=== PATIENT | female | born 1990 | race Caucasian/White ===

== ENCOUNTER 2017-02-02 16:50 | Inpatient (IN) | payer OTHER ==
[2017-02-02] VITALS (7 sets, daily range): BP systolic 90–122; BP diastolic 46–69
[~2017-02-02] VITALS: Ht 154.9 cm; Wt 52.0 kg
[~2017-02-02 16:50] MED LIST: DESYREL100 MG PO; REMERON15 M2 PO; TRAZODONE HCL100 MG PO
[2017-02-02] MEDS ORDERED: GEODON20 MG PO (18:02)
[2017-02-02 18:36] LABS: EOSINOPHIL (%) 0.4 % (0-5); EOSINOPHIL COUNT 0.1 K/uL (0-0.3); IMMATURE GRANULOCYTE (%) 0.4 % (0.0-0.7); IMMATURE GRANULOCYTE COUNT 0.1 K/uL; INSTRUMENT ABS NEUTROPHIL CT 9.7 K/uL; LYMPHOCYTE COUNT 2.5 K/uL (1.0-2.8); MCH 31.5 PG (29.0-34.0); MCV 89.9 FL (83-99); MEAN PLAT.VOLUME 11.8 uM^3 (9.5-12.4); MONOCYTE (%) 4.3 % (3-12); MONOCYTE COUNT 0.6 K/uL (0-0.8); NEUTROPHIL (%) 75.2 % (45-76); NEUTROPHIL COUNT 9.7 K/uL (1.8-6.4); PLATELET COUNT 148 K/uL (156-360); RBC DIS.WIDTH-CV 12.9 % (11.8-14.6); RBC DIS.WIDTH-SD 42.5 % (39-53); RED BLOOD COUNT 3.56 M/uL (3.80-5.20); WHITE BLOOD COUNT 12.9 K/uL (4.1-10.2)
[2017-02-02 22:51] LABS: AMPHETAMINE NEGATIVE (500 ng/mL); BARBITURATES NEGATIVE (200 ng/mL); BENZODIAZEPINES NEGATIVE (150 ng/mL); COCAINE NEGATIVE (150 ng/mL); INTERNAL CONTROLS VALID? YES; METHADONE NEGATIVE (200 ng/mL); METHAMPHETAMINE NEGATIVE (500 ng/mL); OPIATES (MORPHINE) NEGATIVE (100 ng/mL); OXYCODONE NEGATIVE (100 ng/mL); PHENCYCLIDINE NEGATIVE (25 ng/mL); PROPOXYPHENE NEGATIVE (300 ng/mL); THC CANNABINOIDS NEGATIVE (50 ng/mL); TRICYCLIC ANTIDEPRESSANTS NEGATIVE (300 ng/mL)
[2017-02-03] VITALS (22 sets, daily range): BP systolic 79–124; BP diastolic 42–76
[2017-02-03 10:46] LABS: ANION GAP 8 MEQ/L (2-14); CHLORIDE 106 MEQ/L (99-109); POTASSIUM 3.7 MEQ/L (3.7-5.4); SAMPLE HEMOLYSIS CHECK 0; SAMPLE ICTERIC CHECK 0; SAMPLE LIPEMIA CHECK 0; SODIUM 136 MEQ/L (136-147); TOTAL BILIRUBIN 0.3 MG/DL (0.0-1.0)
[2017-02-03 10:52] LABS: ALKALINE PHOSPHATASE 141 IU/L (3-129); GFR ESTIMATE (CALCULATED) > 59 mL/min/; GLUCOSE 107 mg/dL (70-99); UREA NITROGEN (BUN) 7 mg/dL (9-23)
[2017-02-03] MEDS ORDERED: IBUPROFEN800 MG PO (13:33)
[2017-02-04 07:57] VITALS: BP 103/65
[2017-02-04 14:42] VITALS: BP 111/61
[2017-02-05 07:32] VITALS: BP 99/62
== END 2017-02-05 13:35 | disposition home or self-care (01) | DRG 774 ==
LOC: LDRP-OP 16:50 → 2WEST 16:52 → LDRP-OP 03-25 12:02
PROVIDERS: Midwife; Obstetrics & Gynecology
PROC: 3E033VJ Introduction of Other Hormone into Peripheral Vein, Percutaneous Approach (ICD-10-PCS; 2017-02-02)
PROC: 3E0P7GC Introduction of Other Therapeutic Substance into Female Reproductive, Via Natural or Artificial Opening (ICD-10-PCS; 2017-02-02)
PROC: 10E0XZZ Delivery of Products of Conception, External Approach (ICD-10-PCS; principal; 2017-02-03)
PROC: 3E0S3BZ Introduction of Anesthetic Agent into Epidural Space, Percutaneous Approach (ICD-10-PCS; 2017-02-03)
PROC: 10907ZC Drainage of Amniotic Fluid, Therapeutic from Products of Conception, Via Natural or Artificial Opening (ICD-10-PCS; 2017-02-03)
DX: O36.5931 Maternal care for other known or suspected poor fetal growth, third trimester, fetus 1 (principal); O98.42 Viral hepatitis complicating childbirth; O99.324 Drug use complicating childbirth; F31.30 Bipolar disorder, current episode depressed, mild or moderate severity, unspecified; B18.2 Chronic viral hepatitis C; O24.420 Gestational diabetes mellitus in childbirth, diet controlled; O99.334 Smoking (tobacco) complicating childbirth; O99.344 Other mental disorders complicating childbirth; Z37.0 Single live birth; Z3A.37 37 weeks gestation of pregnancy; F41.9 Anxiety disorder, unspecified; Z79.84 Long term (current) use of oral hypoglycemic drugs; O24.425 Gestational diabetes mellitus in childbirth, controlled by oral hypoglycemic drugs; Z81.1 Family history of alcohol abuse and dependence; Z87.440 Personal history of urinary (tract) infections
CPT/HCPCS: 80053; 85025; 87086; 88307; C1755; G0378; J3010; J7120

== ENCOUNTER → 2017-02-08 | Outpatient (CLI) | payer OTHER ==
[~2017-02-08] MED LIST changes: +GEODON20 MG PO; +IBUPROFEN800 MG PO
== END | disposition home or self-care (01) ==
LOC: LAC 14:03
DX: Z39.1 Encounter for care and examination of lactating mother (principal); O92.03 Retracted nipple associated with lactation; O92.79 Other disorders of lactation
CPT/HCPCS: G0463